=== PATIENT | female | born 1960 | race Two or more races ===

== ENCOUNTER 2023-04-07 20:28 | Inpatient (IN) | payer OTHER, SELFPAY ==
[~2023-04-07] VITALS: Ht 160 cm; Wt 123.0 kg
[2023-04-07 21:49] LABS: Basophils # (auto) 0 10 ^3/uL (0-0.2); Basophils % (auto) 0.3 % (0.0-2.0); Eosinophils # (auto) 0 10 ^3/uL (0-0.8); Hematocrit 36.2 % (36.0-46.0); Lymphocytes # (auto) 0.7 10 ^3/uL (0.4-5.4); Mean Corpuscular Hgb Conc. 33.1 g/dL (32.0-36.0); Mean Corpuscular Volume 87.7 fL (80.0-100.0); Monocytes # (auto) 0.7 10 ^3/uL (0-1.3); Monocytes % (auto) 3.9 % (0.0-12.0); Neutrophils % (auto) 91.8 % (37.0-80.0); Red Blood Cells 4.13 10^6/uL (4.0-5.20); Red Cell Distribution Width 13.4 % (11.8-14.3); White Blood Cell 18.5 10^3/uL (4.4-10.8)
[2023-04-07 22:06] LABS: COVID19 ANTIGEN SOFIA FIA NEGATIVE (NEGATIVE); Rapid Influenza A Negative (Negative); Rapid Influenza B Negative (Negative)
[2023-04-07 22:12] LABS: Alanine Aminotransferase 35 U/L (7-40); Albumin 4.5 g/dL (3.2-4.8); Alkaline Phosphatase 158 U/L (46-116); Anion Gap 9 (5-15); Aspartate Aminotransferase 45 U/L (13-40); BUN/Creatinine Ratio 10.5 (10.0-20.0); Blood Urea Nitrogen 8 mg/dL (9-23); Calcium 8.9 mg/dL (8.7-10.4); Carbon Dioxide 29 mmol/L (20-30); Chloride 101 mmol/L (98-107); Glucose 146 mg/dL (74-106); Potassium 2.7 mmol/L (3.5-5.1); Sodium 139 mmol/L (136-145)
[2023-04-07 22:13] LABS: Bilirubin, Total 1.6 mg/dL (0.2-1.0)
[2023-04-07] MEDS ORDERED: cefTRIAXone 1GM/50ML D5W 50 ML IV ONE (23:45)
[2023-04-07] MEDS ORDERED: methylPREDNISolone SOD SUCC 125 MG/2 ML VL IV ONE (23:45)
[2023-04-07] MEDS ORDERED: ASPirin 325 MG TAB PO ONE (23:45)
[2023-04-07] MEDS ORDERED: ALBUTEROL SULF 2.5 MG/0.5ML(0.5%) NEB SOLN NEB ONE (23:45)
[2023-04-08] VITALS (10 sets, daily range): BP systolic 147; BP diastolic 77; PULSE 61–80; RESP 14–20; O2SAT 93–99
[2023-04-08] MEDS ORDERED: NITROGLYCERIN 2% OINT 1GM PKG TD ONE (00:45)
[2023-04-08] MEDS ORDERED: NITROGLYCERIN 0.4 MG SL TAB SL PRN (01:30)
[2023-04-08] MEDS ORDERED: ACETAMINOPHEN 325 MG TAB PO PRN (01:30)
[2023-04-08] MEDS ORDERED: LORazepam 0.5 MG TAB PO PRN (01:30)
[2023-04-08] MEDS ORDERED: ONDANSETRON HCL 4 MG/2 ML VIAL IV PRN (01:30)
[2023-04-08] MEDS ORDERED: MORPHINE SULFATE 4 MG/ML SYR/VIAL IV PRN (01:30)
[2023-04-08] MEDS ORDERED: MAALOX PLUS or MAALOX 30 ML PO ONE (03:30)
[2023-04-08 05:46] LABS: Basophils # (auto) 0 10 ^3/uL (0-0.2); Eosinophils # (auto) 0 10 ^3/uL (0-0.8); Hematocrit 35.5 % (36.0-46.0); Hemoglobin 11.6 g/dL (12.2-16.2); Lymphocytes # (auto) 0.8 10 ^3/uL (0.4-5.4); Lymphocytes % (auto) 5.3 % (10.0-50.0); Mean Corpuscular Hemoglobin 28.9 pg (28.0-32.0); Mean Corpuscular Hgb Conc. 32.8 g/dL (32.0-36.0); Monocytes # (auto) 0.3 10 ^3/uL (0-1.3); Monocytes % (auto) 1.8 % (0.0-12.0); Neutrophils # (auto) 14.7 10 ^3/uL (1.6-8.6); Neutrophils % (auto) 92.9 % (37.0-80.0); Red Blood Cells 4.03 10^6/uL (4.0-5.20); Red Cell Distribution Width 13.4 % (11.8-14.3); White Blood Cell 15.9 10^3/uL (4.4-10.8)
[2023-04-08 05:56] LABS: Anion Gap 11 (5-15); Calcium 8.8 mg/dL (8.7-10.4); Carbon Dioxide 29 mmol/L (20-30); Chloride 101 mmol/L (98-107); Potassium 2.6 mmol/L (3.5-5.1); Sodium 141 mmol/L (136-145)
[2023-04-08] MEDS: ALBUTEROL SULF 2.5 MG/0.5ML(0.5%) NEB SOLN NEB PRN ×2 (05:58→10:35)
[2023-04-08 06:02] LABS: BUN/Creatinine Ratio 15.4 (10.0-20.0); Blood Urea Nitrogen 10 mg/dL (9-23); Glucose 175 mg/dL (74-106); Magnesium 1.9 mg/dL (1.6-2.6)
[2023-04-08] MEDS ORDERED: POTASSIUM CHL 20 Meq TABLET PO SCH (10:00)
[2023-04-08] MEDS ORDERED: CLOPIDOGREL BISULFATE 75 MG TAB PO SCH (10:00)
[2023-04-08] MEDS: DOCUSATE SOD 100 MG CAP PO SCH (10:03)
[2023-04-08] MEDS: ASPirin 81 mg TAB PO SCH (10:03)
[2023-04-08] MEDS: predniSONE 20 MG TAB PO SCH (10:03)
[2023-04-08] MEDS: AZITHROMYCIN 250 MG TAB PO SCH (10:03)
[2023-04-08] MEDS ORDERED: POTASSIUM EFFERVESENT TAB 25 MEQ GT SCH (14:00)
[2023-04-08] MEDS ORDERED: hydrALAZINE HCL 20 MG/ML VL IV ONE (18:30)
[2023-04-08] MEDS ORDERED: hydrALAZINE HCL 20 MG/ML VL IV PRN (18:30)
[2023-04-08] MEDS: cefTRIAXone 1GM/50ML D5W 50 ML IV SCH (21:09)
[2023-04-08] MEDS: POTASSIUM EFFERVESENT TAB 25 MEQ PO SCH (21:52)
[2023-04-08] MEDS: ATORVASTATIN 20 MG TAB PO SCH (21:53)
[2023-04-09] VITALS (8 sets, daily range): BP systolic 129–152; BP diastolic 71–84; PULSE 65–79; RESP 17–20; TEMP 97.6–98; O2SAT 93–95
[2023-04-09] MEDS ORDERED: ALBU2TAB11 IN (02:40)
[2023-04-09] MEDS ORDERED: NAPR-957 PO (02:40)
[2023-04-09] MEDS ORDERED: LEVO25TA6 PO (02:40)
[2023-04-09] MEDS ORDERED: LOSA50TA46 PO (02:40)
[2023-04-09] MEDS: SPIRONOLACTONE 25 MG TAB PO SCH (09:03)
[2023-04-09] MEDS: predniSONE 20 MG TAB PO SCH (09:03)
[2023-04-09] MEDS: POTASSIUM EFFERVESENT TAB 25 MEQ PO SCH ×2 (09:04→21:19)
[2023-04-09] MEDS: AZITHROMYCIN 250 MG TAB PO SCH (09:04)
[2023-04-09] MEDS: ASPirin 81 mg TAB PO SCH (09:04)
[2023-04-09] MEDS: DOCUSATE SOD 100 MG CAP PO SCH (09:05)
[2023-04-09] MEDS: hydroCHLOROthiazide 25 MG TAB PO SCH (09:05)
[2023-04-09 11:30] LABS: Cholesterol 207 mg/dL (< 200); Triglycerides 133 mg/dL (< 150)
[2023-04-09 11:31] LABS: LDL Cholesterol 146 mg/dL (< 100)
[2023-04-09 11:32] LABS: HDL Cholesterol 49 mg/dL (40-59)
[2023-04-09] MEDS ORDERED: LEVOTHYROXINE SODIUM 25 MCG TAB PO ONE (14:30)
[2023-04-09] MEDS: cefTRIAXone 1GM/50ML D5W 50 ML IV SCH (21:17)
[2023-04-09] MEDS: ATORVASTATIN 20 MG TAB PO SCH (21:18)
[2023-04-10 05:00] VITALS: BP 151/92; PULSE 71; RESP 17; TEMP 98.4; O2SAT 96
[2023-04-10 06:05] VITALS: O2SAT 96
[2023-04-10 08:00] VITALS: PULSE 60; PULSE 78; RESP 15
[2023-04-10 09:08] VITALS: BP 174/92; PULSE 60; RESP 15; TEMP 97.9; O2SAT 95
[2023-04-10] MEDS: DOCUSATE SOD 100 MG CAP PO SCH (10:00)
[2023-04-10] MEDS: ASPirin 81 mg TAB PO SCH (10:24)
[2023-04-10] MEDS: AZITHROMYCIN 250 MG TAB PO SCH (10:24)
[2023-04-10] MEDS: SPIRONOLACTONE 25 MG TAB PO SCH (10:25)
[2023-04-10] MEDS: hydroCHLOROthiazide 25 MG TAB PO SCH (10:25)
[2023-04-10] MEDS: POTASSIUM EFFERVESENT TAB 25 MEQ PO SCH (10:26)
[2023-04-10] MEDS: predniSONE 20 MG TAB PO SCH (10:26)
[2023-04-10] MEDS ORDERED: ATO40T PO (11:58)
[2023-04-10] MEDS ORDERED: SPIR25TA PO (11:58)
[2023-04-10] MEDS ORDERED: HYDR25TA5 PO (11:58)
[2023-04-10] MEDS ORDERED: ALBUAER3 IN (11:58)
[2023-04-10] MEDS ORDERED: AZIT500T66 PO (11:58)
[2023-04-10] MEDS ORDERED: METH4PAK PO (11:58)
[2023-04-10] MEDS ORDERED: POTA-180 PO (11:58)
[2023-04-10 12:40] VITALS: BP 134/79; PULSE 65; RESP 15; TEMP 98.1; O2SAT 97
[2023-04-10 12:50] VITALS: BP 135/75; TEMP 36.7
[2023-04-10] MEDS ORDERED: ATORVASTATIN 20 MG TAB PO SCH (22:00)
== END 2023-04-10 17:52 | disposition home or self-care (01) | DRG 871 ==
LOC: ER 20:28 → TELE-WESTW 04-08 01:43 → TELE 04-08 01:43 → TELE-WESTW 04-08 23:52
PROVIDERS: ADMIT Hospitalist; ATTEND Family Medicine
DX: A41.9 Sepsis, unspecified organism (principal); I21.4 Non-ST elevation (NSTEMI) myocardial infarction; J18.9 Pneumonia, unspecified organism; J45.901 Unspecified asthma with (acute) exacerbation; Z68.42 Body mass index [BMI] 45.0-49.9, adult; I10 Essential (primary) hypertension; E66.01 Morbid (severe) obesity due to excess calories; E03.9 Hypothyroidism, unspecified; E78.00 Pure hypercholesterolemia, unspecified; E87.6 Hypokalemia; Z20.822 Contact with and (suspected) exposure to COVID-19; R07.89 Other chest pain
CPT/HCPCS: 36415; 71045; 80048; 80053; 80061; 83036; 83735; 83880; 84132; 84443; 84484; 85025; 87426; 87804; 93005; 93306; 94640; 96365; 96375; G0378